=== PATIENT | male | born 1990 | race Caucasian/White ===

== ENCOUNTER 2018-02-20 14:56 | Emergency (ER) | payer SELFPAY ==
[~2018-02-20] VITALS: Ht 182.9 cm; Wt 72.6 kg
[~2018-02-20 14:56] MED LIST: ACHYD1T PO; CIPR-226 PO; CIPR500T78 PO; DICY20TA57 PO; HYDR-757 PO; IBUP800T26 PO; LVF500T PO; TMSL.4C PO
[2018-02-20 15:56] LABS: BASOPHILS % (AUTO) 0 % (0-10); EOSINOPHILS # (AUTO) 0.3 10^3/uL (0.0-0.3); EOSINOPHILS % (AUTO) 3 % (0-10); HEMATOCRIT 43 % (40-54); HEMOGLOBIN 15.3 G/DL (13.3-17.7); LYMPHOCYTES % (AUTO) 26 % (12-44); MEAN CORPUSCULAR HEMOGLOBIN 31 PG (25-34); MEAN CORPUSCULAR HGB CONC 35 G/DL (32-36); MEAN CORPUSCULAR VOLUME 88 FL (80-99); MEAN PLATELET VOLUME 10.1 FL (7.4-10.4); MONOCYTES # (AUTO) 0.8 X 10^3 (0.0-1.0); MONOCYTES % (AUTO) 7 % (0-12); NEUTROPHILS # (AUTO) 7.4 X 10^3 (1.8-7.8); NEUTROPHILS % (AUTO) 64 % (42-75); PLATELET COUNT 278 10^3/uL (130-400); RED BLOOD COUNT 4.92 10^6/uL (4.35-5.85); RED CELL DISTRIBUTION WIDTH 12.3 % (10.0-14.5); WHITE BLOOD COUNT 11.5 10^3/uL (4.3-11.0)
[2018-02-20] MEDS ORDERED: NS IV 1000 ML 1,000 ML IV SCH (16:00)
[2018-02-20] MEDS ORDERED: KETOROLAC 30 MG/ML VIAL IVP ONE (16:00)
[2018-02-20] MEDS ORDERED: fentaNYL INJECTION 100 MCG/2 ML AMP IVP ONE (16:00)
[2018-02-20 16:04] LABS: BILIRUBIN,URINE NEGATIVE (NEGATIVE); CLARITY,URINE CLEAR; COLOR,URINE YELLOW; GLUCOSE, URINE (UA) NEGATIVE (NEGATIVE); KETONES,URINE NEGATIVE (NEGATIVE); LEUKOCYTE ESTERASE ,URINE 1+ (NEGATIVE); NITRITE,URINE NEGATIVE (NEGATIVE); PH,URINE 6 (5-9); PROTEIN,URINE 1+ (NEGATIVE); UROBILINOGEN,URINE NORMAL (NORMAL)
[2018-02-20 16:08] LABS: ALANINE AMINOTRANSFERASE 22 U/L (0-55); ALBUMIN 4.6 GM/DL (3.2-4.5); ALKALINE PHOSPHATASE 66 U/L (40-136); AMYLASE 49 U/L (25-125); BILIRUBIN,TOTAL 0.5 MG/DL (0.1-1.0); BUN/CREATININE RATIO 16; CALCIUM 9.5 MG/DL (8.5-10.1); CARBON DIOXIDE 23 MMOL/L (21-32); CHLORIDE 104 MMOL/L (98-107); CREATININE SERUM 0.82 MG/DL (0.60-1.30); GFR ESTIMATED > 60; GLUCOSE 130 MG/DL (70-105); LIPASE 14 U/L (8-78); POTASSIUM 3.7 MMOL/L (3.6-5.0); SODIUM 138 MMOL/L (135-145); TOTAL PROTEIN 7.3 GM/DL (6.4-8.2)
[2018-02-20 16:13] LABS: BACTERIA,URINE FEW /HPF; RBC,URINE >100 /HPF; SQUAMOUS EPITHELIAL CELL,UR 0-2 /HPF
--- NOTE | 2018-02-20 16:23 | Diagnostic Imaging Report ---
INDICATION: Left-sided abdominal pain. COMPARISON: CT from earlier same day. FINDINGS: Single supine radiographic view of the abdomen was obtained. Bilateral nephrolithiasis is again identified. No other unexpected radiopaque foreign bodies or extraosseous calcifications are seen. Small bowel loops are nondistended. There is no large collection of free intraperitoneal air. Bony structures show no acute abnormalities. IMPRESSION: 1. Bilateral nephrolithiasis. 2. Nonobstructed small bowel gas pattern. Dictated by: Dictated on workstation # [id number]
--- NOTE | 2018-02-20 16:25 | Diagnostic Imaging Report ---
PROCEDURE: CT urinary tract, rule out kidney stone. TECHNIQUE: Multiple contiguous axial images were obtained through the abdomen and pelvis without the use of intravenous contrast. INDICATION: Left flank pain. The exam compared with contrast-enhanced study performed 02/03/2014. FINDINGS: There is no hydroureteronephrosis and the previous obstructing left ureteral stone no longer identified. A left pelvic extraureteral calcification believed phlebolith is seen on image 123. Urinary bladder is thickwalled but it is poorly distended and likely accounts for its dilatation. Some right prostatic lobe calcifications chronic. There are bilateral intrarenal stones, the largest on the left measuring 7.3 mm, the largest on the right measuring 3.3 mm. There is a right renal cyst better characterized at the 2014 contrast enhanced exam which showed no obvious change measuring about 1.9 cm. No perinephric or periureteric edema today. The liver, gallbladder, bile ducts, spleen, adrenals and pancreas were unremarkable. IMPRESSION: 1. Bilateral intrarenal stones without hydronephrosis or an opaque ureteral calculus. There is some thickening of the urinary bladder song but this is probably exaggerated owing to its lack of distention. No urinoma or periureteric inflammatory change. 2. Remaining abdominopelvic solid and hollow viscera unremarkable. Dictated by: Dictated on workstation # [id number]
[2018-02-20] MEDS ORDERED: ACHD5005 PO (17:07)
[2018-02-20] MEDS ORDERED: SULF1TAB35 PO (17:07)
--- NOTE | 2018-02-20 17:07 | ED Abdominal Pain ---
General Chief Complaint: Abdominal/GI Problems Stated Complaint: POSS KIDNEY STONES/PN LT SIDE Nursing Triage Note: PT AMB TO ROOM #8 W/O DIFFIUCLTY. A&OX4. CO LT SIDE ABD PAIN. PT REPORTS HE HAS HAD KIDNEY STONES IN THE PAST WHICH HE HAD TO HAVE SURGICALLY REMOVED AND REPORTS PAIN IS VERY SIMILAR TO PAIN EXPERIENCED PRIOR TO REMOVAL. DENIES N/V. ABD SOFT, ROUND, AND NON TENDER UPON PALPATION. BOWEL SOUNDS ACTIVE AND EQUAL IN ALL FOUR QUARDRANTS. Sepsis Screen: No Definite Risk Source of Information: Patient Exam Limitations: No Limitations History of Present Illness Date Seen by Provider: Feb 20, 2018 Time Seen by Provider: 17:20 Initial Comments Patient is a 28-year-old male who presents to the emergency room with complaints of left-sided abdominal/flank pain that started 2 days ago. He reports that he does have a history of kidney stones which had to be removed by Dr. Velarde. He states the pain was at its worst last night but has gradually improved throughout the day. Denies any nausea or vomiting. Timing/Duration: 2-3 Days Severity/Quality: Throbbing Location: LUQ, Flank (left) Associated Symptoms: No Fever/Chills, No Nausea/Vomiting Allergies and Home Medications Allergies Coded Allergies: NKANo Known Allergies (Unverified Allergy, Mild, 05/17/09) Home Medications Hydrocodone Bit/Acetaminophen 1 Tab Tab, 1 EACH PO Q4H PRN for PAIN Prescribed by: ANNIA COLVIN on 02/20/181706 Sulfamethoxazole/Trimethoprim 1 Each Tablet, 1 EACH PO BID Prescribed by: ANNIA COLVIN on 02/20/181706 Patient Home Medication List Home Medication List Reviewed: Yes Review of Systems Constitutional: see HPI; No chills, No fever Genitourinary: See HPI, Flank Pain (left flank pain) All Other Systems Reviewed Negative Unless Noted: Yes Past Tqrukrf-Umzlof-Hxmool Hx Past Med/Social Hx: Reviewed Nursing Past Med/Soc Hx Patient Social History Alcohol Use: Denies Use Recreational Drug Use: No (SMOKES 1 PPD) Smoking Status: Current Everyday Smoker Type Used: Cigarettes 2nd Hand Smoke Exposure: Yes Recent Foreign Travel: No Contact w/Someone Who Travel: No Recent Infectious Disease Expo: No Physical Abuse: No Sexual Abuse: No Past Medical History Surgeries: Yes (CYSTO WITH LEFT URETEROSCOPY; LITHOTRIPSY X 2; KIDNEY STONE REMOVAL) Respiratory: No Cardiac: No Neurological: No Reproductive Disorders: No Sexually Transmitted Disease: No HIV/AIDS: No Genitourinary: Yes Kidney Stones Gastrointestinal: No Musculoskeletal: No Endocrine: No HEENT: No Cancer: No Psychosocial: No Nursing Suicide Risk Score: 0 Integumentary: No Blood Disorders: No Adverse Reaction/Blood Tranf: No Family Medical History Reviewed Nursing Family Hx Physical Exam Vital Signs Vital Signs - First Documented 02/20/18 15:07 Temp 97.1 Pulse 69 Resp 16 B/P (MAP) 135/91 (106) Pulse Ox 99 O2 Delivery Room Air Capillary Refill : Less Than 3 Seconds Height/Weight/BMI Height: 6'0" Weight: 160lbs. oz. 72.664513be; 20.80 BMI Method:Stated General Appearance: WD/WN, no apparent distress Respiratory: chest non-tender, lungs clear, normal breath sounds, no respiratory distress, no accessory muscle use Cardiovascular: regular rate, rhythm, no edema, no gallop, no JVD, no murmur Gastrointestinal: normal bowel sounds, soft, no organomegaly, no pulsatile mass , tenderness (mild tenderness on left lower quadrant pain) Back: normal inspection, no CVA tenderness, no vertebral tenderness Neurologic/Psychiatric: alert, normal mood/affect, oriented x 3 Skin: normal color, warm/dry Progress/Results/Core Measures Results/Orders Lab Results Laboratory Tests Test 02/20/18 15:15 02/20/18 15:56 Range/Units White Blood Count 11.5 H 4.3-11.0 10^3/uL Red Blood Count 4.92 4.35-5.85 10^6/uL Hemoglobin 15.3 13.3-17.7 G/DL Hematocrit 43 40-54 % Mean Corpuscular Volume 88 80-99 FL Mean Corpuscular Hemoglobin 31 25-34 PG Mean Corpuscular Hemoglobin Concent 35 32-36 G/DL Red Cell Distribution Width 12.3 10.0-14.5 % Platelet Count 278 130-400 10^3/uL Mean Platelet Volume 10.1 7.4-10.4 FL Neutrophils (%) (Auto) 64 42-75 % Lymphocytes (%) (Auto) 26 12-44 % Monocytes (%) (Auto) 7 0-12 % Eosinophils (%) (Auto) 3 0-10 % Basophils (%) (Auto) 0 0-10 % Neutrophils # (Auto) 7.4 1.8-7.8 X 10^3 Lymphocytes # (Auto) 3.0 1.0-4.0 X 10^3 Monocytes # (Auto) 0.8 0.0-1.0 X 10^3 Eosinophils # (Auto) 0.3 0.0-0.3 10^3/uL Basophils # (Auto) 0.0 0.0-0.1 10^3/uL Sodium Level 138 135-145 MMOL/L Potassium Level 3.7 3.6-5.0 MMOL/L Chloride Level 104 98-107 MMOL/L Carbon Dioxide Level 23 21-32 MMOL/L Anion Gap 11 5-14 MMOL/L Blood Urea Nitrogen 13 7-18 MG/DL Creatinine 0.82 0.60-1.30 MG/DL Estimat Glomerular Filtration Rate > 60 BUN/Creatinine Ratio 16 Glucose Level 130 H 70-105 MG/DL Calcium Level 9.5 8.5-10.1 MG/DL Corrected Calcium 8.5-10.1 MG/DL Total Bilirubin 0.5 0.1-1.0 MG/DL Aspartate Amino Transf (AST/SGOT) 21 5-34 U/L Alanine Aminotransferase (ALT/SGPT) 22 0-55 U/L Alkaline Phosphatase 66 40-136 U/L Total Protein 7.3 6.4-8.2 GM/DL Albumin 4.6 H 3.2-4.5 GM/DL Amylase Level 49 25-125 U/L Lipase 14 8-78 U/L Urine Color YELLOW Urine Clarity CLEAR Urine pH 6 5-9 Urine Specific [place] 1.025 H 1.016-1.022 Urine Protein 1+ H NEGATIVE Urine Glucose (UA) NEGATIVE NEGATIVE Urine Ketones NEGATIVE NEGATIVE Urine Nitrite NEGATIVE NEGATIVE Urine Bilirubin NEGATIVE NEGATIVE Urine Urobilinogen NORMAL NORMAL MG/DL Urine Leukocyte Esterase 1+ H NEGATIVE Urine RBC (Auto) 5+ H NEGATIVE Urine RBC >100 H /HPF Urine WBC 5-10 H /HPF Urine Squamous Epithelial Cells 0-2 /HPF Urine Crystals NONE /LPF Urine Bacteria FEW H /HPF Urine Casts NONE /LPF Urine Mucus NEGATIVE /LPF Urine Culture Indicated YES Micro Results Microbiology 02/20/18 Urine Culture - Final, Complete NO GROWTH My Orders Orders - ANNIA COLVIN Urine Dip-Bedside (02/20/18 15:50) Ct Abd/Pelvis Wo(Kidney Stone) (02/20/18 15:50) Abdomen/Kub 1view (02/20/18 15:50) Saline Lock/Iv-Start (02/20/18 15:50) Fentanyl Injection (Sublimaze Injection (02/20/18 16:00) Ketorolac Injection (Toradol Injection) (02/20/18 16:00) Cbc With Automated Diff (02/20/18 15:50) Comprehensive Metabolic Panel (02/20/18 15:50) Amylase (02/20/18 15:50) Lipase (02/20/18 15:50) Ns Iv 1000 Ml (Sodium Chloride 0.9%) (02/20/18 16:00) Ua Culture If Indicated (02/20/18 15:57) Urine Culture (02/20/18 15:56) Medications Given in ED Vital Signs/I&O 02/20/18 02/20/18 15:07 17:21 Temp 97.1 97.1 Pulse 69 72 Resp 16 16 B/P (MAP) 135/91 (106) 126/78 (106) Pulse Ox 99 99 O2 Delivery Room Air Room Air Blood Pressure Mean: 106 Progress Progress Note : Progress Note I have seen and evaluated the patient. With the patients history of kidney stones, ct finding, laboratory finding, relief of pain I believe the patient has passed a kidney stone recently. I have informed him of plans for discharge, close follow up, and return precautions were given. Diagnostic Imaging Diagonstic Imaging: Xray, CT Plain Films/CT/US/NM/MRI: abdomen Comments NAME: ANNIA CHAN R MED REC#: [id number] PHYSICIAN: ANNIA COLVIN CC: ANTHALY COLVIN NICHOLAS M MD Page 1 of 1 RADIOLOGY REPORT VIA [facility]. [place], [place] CC: ANNIA COLVIN; STEPHANE MONTOYA MD Page 1 of 1 RADIOLOGY REPORT NAME: ANNIA CHAN R [facility] REC#: [id number] PT STATUS: DEP ER : 1990 PHYSICIAN: ANNIA COLVIN ADMIT DATE: 02/20/18/ER Signed Date of Exam: 02/20/18 ABDOMEN/KUB 1VIEW INDICATION: Left-sided abdominal pain. COMPARISON: CT from earlier same day. FINDINGS: Single supine radiographic view of the abdomen was obtained. Bilateral nephrolithiasis is again identified. No other unexpected radiopaque foreign bodies or extraosseous calcifications are seen. Small bowel loops are nondistended. There is no large collection of free intraperitoneal air. Bony structures show no acute abnormalities. IMPRESSION: 1. Bilateral nephrolithiasis. 2. Nonobstructed small bowel gas pattern. Dictated by: Dictated on workstation # [id number] Dict: 02/20/18 1615 Trans: 02/21/18 08 Interpreted by: STEPHANE MONTOYA MD Electronically signed by: STEPHANE MONTOYA MD 02/21/18808 NAME: ANNIA CHAN MED REC#: [id number] PHYSICIAN: ANNIA COLVIN CC: ANNIA COLVIN; SHUBHAM BEAN Page 2 of 2 RADIOLOGY REPORT VIA [place], [place] CC: NATHALY COLVIN THOMAS D Page 1 of 1 RADIOLOGY REPORT NAME: ANNIA CHAN R MED REC#: [id number] PT STATUS: REG ER : 1990 PHYSICIAN: ANNIA COLVIN ADMIT DATE: 02/20/18/ER Signed Date of Exam: 02/20/18 CT ABD/PELVIS WO(KIDNEY STONE) PROCEDURE: CT urinary tract, rule out kidney stone. TECHNIQUE: Multiple contiguous axial images were obtained through the abdomen and pelvis without the use of intravenous contrast. INDICATION: Left flank pain. The exam compared with contrast-enhanced study performed 02/03/2014. FINDINGS: There is no hydroureteronephrosis and the previous obstructing left ureteral stone no longer identified. A left pelvic extraureteral calcification believed phlebolith is seen on image 123. Urinary bladder is thickwalled but it is poorly distended and likely accounts for its dilatation. Some right prostatic lobe calcifications chronic. There are bilateral intrarenal stones, the largest on the left measuring 7.3 mm, the largest on the right measuring 3.3 mm. There is a right renal cyst better characterized at the 2014 contrast enhanced exam which showed no obvious change measuring about 1.9 cm. No perinephric or periureteric edema today. The liver, gallbladder, bile ducts, spleen, adrenals and pancreas were unremarkable. IMPRESSION: 1. Bilateral intrarenal stones without hydronephrosis or an opaque ureteral calculus. There is some thickening of the urinary bladder song but this is probably exaggerated owing to its lack of distention. No urinoma or periureteric inflammatory change. 2. Remaining abdominopelvic solid and hollow viscera unremarkable. Dictated by: Dictated on workstation # [id number] Dict: 02/20/18 1613 Trans: 02/20/18 1710 Interpreted by: SHUBHAM BEAN Electronically signed by: SHUBHAM BEAN 02/20/180 Reviewed: Reviewed by Me Departure Impression Primary Impression: Ureteral calculus, left Additional Impression: Urinary tract infection Disposition: 01 HOME, SELF-CARE Condition: Stable/Unchanged Departure-Patient Inst. Decision time for Depature: 17:06 Referrals: [facility] (PCP/Family) Primary Care Physician Patient Instructions: Kidney Stones (DC) Add. Discharge Instructions: Take medications as directed. Follow up with your doctor within 1 week for recheck. Return back to the emergency room for any worsening symptoms or concerns as needed. Drink plenty of clear liquids like water. All discharge instructions reviewed with patient and/or family. Voiced understanding. Scripts Hydrocodone Bit/Acetaminophen (Hydrocodone/Acetaminophen 5/325mg Tablet) 1 Tab Tab 1 EACH PO Q4H PRN for PAIN, #14 TAB Prov: ANNIA COLVIN 02/20/18 Sulfamethoxazole/Trimethoprim (Bactrim Ds Tablet) 1 Each Tablet 1 EACH PO BID for 7 Days, #14 TAB Prov: ANNIA COLVIN 02/20/18 ANNIA COLVIN Feb 20, 2018 17:07
[2018-02-20 17:21] VITALS: BP 126/78
== END 2018-02-20 17:21 | disposition home or self-care (01) ==
LOC: EDUNIT# 14:56 → ER 14:59
DX: N20.1 Calculus of ureter (principal); N39.0 Urinary tract infection, site not specified; F17.210 Nicotine dependence, cigarettes, uncomplicated; Z87.442 Personal history of urinary calculi
CPT/HCPCS: 36415; 74018; 74176; 80053; 81000; 82150; 83690; 85025; 87088; 96361; 96374; 96375

== ENCOUNTER 2018-04-10 09:29 | Emergency (ER) | payer SELFPAY ==
[~2018-04-10 09:29] MED LIST changes: +ACHD5005 PO; +SULF1TAB35 PO
== END 2018-04-10 10:17 | disposition left against medical advice (07) ==
LOC: EDUNIT# 09:29 → ER 09:30
DX: S61.219A Laceration without foreign body of unspecified finger without damage to nail, initial encounter (principal); W26.8XXA Contact with other sharp object(s), not elsewhere classified, initial encounter; Y92.008 Other place in unspecified non-institutional (private) residence as the place of occurrence of the external cause

== ENCOUNTER 2018-09-22 11:44 | Emergency (ER) | payer BC, OTHER ==
[~2018-09-22] VITALS: Ht 182.9 cm; Wt 77.1 kg
--- OUTSIDE RECORDS SUMMARY | 2018-09-22 11:51 | XMS REPORT ---
Author Author SHARONDA LOPEZ [facility] Address [address] [place] [address] Care Team Providers Care Medical Unit Secretary Name Role Phone SHARONDA LOPEZ Unavailable PROBLEMS Type Condition ICD9-CM Code PWG16-ML Code Onset Dates Condition Status SNOMED Code Problem Vomiting alone 787.03 Active 443341680 Problem Intestinal infection due to other organism, NEC 008.8 Active 85232051 Problem Abdominal pain, left upper quadrant 789.02 Active 461707767 Assessment Thoracic myofascial strain, initial encounter S29.019A May Active 12854658 Problem Hemoptysis, unspecified 786.30 Active 45892508 Problem Acute pharyngitis 462 Active 581870914 Problem Nausea with vomiting 787.01 Active 91128642 Problem Diarrhea 787.91 Active 86636308 Problem Cough 786.2 Active 27200295 Problem Hand(s) except finger(s) alone, insect bite, nonvenomous, without mention of infection 914.4 Active 50818884 ALLERGIES Substance Reaction Event Type Date Status N.K.D.A. Unknown Non Drug Allergy May, Unknown SOCIAL HISTORY No smoking Hx information available PLAN OF CARE VITAL SIGNS Height 70 in 2016-06-04 Weight 159.0 lbs 2016-06-04 Heart Rate 68 bpm 2016-06-04 Respiratory Rate 18 2016-06-04 BMI 22.81 kg/m2 2016-06-04 Blood pressure systolic 138 mmHg 2016-06-04 Blood pressure diastolic 78 mmHg 2016-06-04 MEDICATIONS No Known Medications RESULTS No Results PROCEDURES Procedure Date Ordered Related Diagnosis Body Site Office Visit, Est Pt., Level 2 Jun 04, 2016 IMMUNIZATIONS No Known Immunizations
--- OUTSIDE RECORDS SUMMARY | 2018-09-22 11:51 | XMS REPORT ---
Author Author GINA XENIA [facility] Address [address] [place] [address] Care Team Providers Care Network Control Operators Supervisor Name Role Phone XENIA FUENTES Unavailable PROBLEMS Unknown Problems ALLERGIES No Known Allergies ENCOUNTERS Encounter Location Date Diagnosis [facility] [id number] [place] [address] Dec, Spasm of thoracic back muscle M62.830 [facility] [id number] [place] [address] May, Thoracic myofascial strain, initial encounter S29.019A [facility] [id number] [place] [address] Jul, URI (upper respiratory infection) J06.9 [facility] [id number] [place] [address] Oct, [facility] [id number] [place] [address] Oct, [facility] [address] [address] Dec, [facility] [id number] [place] [address] Dec, [facility] [address] [place] [address] Dec, [facility] [id number] [place] [address] Dec, [facility] [address] [place] [address] Mar, [facility] [id number] [place] [address] Jan, [facility] [address] [facility] [id number] [address] Jan, [facility] [id number] [address] Dec, [facility] [id number] [address] Oct, [facility] [address] [place] [address] Oct, [facility] [address] [address] Oct, [facility] [id number] [address] Oct, IMMUNIZATIONS No Known Immunizations SOCIAL HISTORY Never Assessed REASON FOR VISIT Hurt back while moving furniture, pt. states moving and lifting furniture, turned and felt a pop, having pain ever since yesterday---[place] PLAN OF CARE Activity Details Follow Up prn Reason: VITAL SIGNS Height 70 in 2017-01-02 Weight 153.5 lbs 2017-01-02 Temperature 97.8 degrees Fahrenheit 2017-01-02 Heart Rate 74 bpm 2017-01-02 Respiratory Rate 18 2017-01-02 BMI 22.02 kg/m2 2017-01-02 Blood pressure systolic 152 mmHg 2017-01-02 Blood pressure diastolic 83 mmHg 2017-01-02 MEDICATIONS Medication Instructions Dosage Frequency Start Date End Date Duration Status Cyclobenzaprine HCl 10 mg Orally Three times a day 1 tablet as needed 8h Dec, Active RESULTS No Results PROCEDURES No Known procedures INSTRUCTIONS MEDICATIONS ADMINISTERED No Known Medications MEDICAL (GENERAL) HISTORY Type Description Date Surgical History kidney stones x 2
--- OUTSIDE RECORDS SUMMARY | 2018-09-22 11:51 | XMS REPORT ---
Author SHARONDA Huerta [facility] eClinical[employer] Address Unknown Phone Unavailable Care Team Providers Care Associate Veterinarian Name Role Phone SHARONDA LOPEZ CP Unavailable Allergies, Adverse Reactions, Alerts Substance Reaction Event Type N.K.D.A. Info Not Available Non Drug Allergy Problems Problem Type Condition Code Onset Dates Condition Status Assessment URI (upper respiratory infection) J06.9 Active Problem Abdominal pain, left upper quadrant 789.02 Active Problem Vomiting alone 787.03 Active Problem Acute pharyngitis 462 Active Problem Cough 786.2 Active Problem Hemoptysis, unspecified 786.30 Active Problem Diarrhea 787.91 Active Problem Intestinal infection due to other organism, NEC 008.8 Active Problem Hand(s) except finger(s) alone, insect bite, nonvenomous, without mention of infection 914.4 Active Problem Nausea with vomiting 787.01 Active Medications No Known Medications Procedures Procedure Coding System Code Date Office Visit, Est Pt., Level 2 CPT-4 36987 Jul 19, 2015 INFLUENZA ASSAY W/OPTIC CPT-4 62551 Jul 19, 2015 Vital Signs Date/Time: Jul 19, 2015 Temperature 99.1 F Weight 145.3 lbs Height 70 in BMI 20.85 Index Blood Pressure Diastolic 78 mmHg Blood Pressure Systolic 124 mmHg Cardiac Monitoring Heart Rate 72 bpm Results Name Result Date Reference Range Unit Abnormality Flag INFLUENZA A & B (IN HOUSE) ----Exp date [id number] ----INFLUENZA A negative [id number] ----INFLUENZA B negative [id number] ----Control + [id number] ----Lot # [id number] Summary Purpose eClinicalWorks Submission
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
[2018-09-22] MEDS ORDERED: KETOROLAC 60 MG/2 ML VIAL IM ONE (13:00)
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
[2018-09-22] MEDS ORDERED: CYCL10TA9 PO (14:23)
[2018-09-22] MEDS ORDERED: NAPR-1071 PO (14:23)
[2018-09-22 14:42] VITALS: BP 132/98
== END 2018-09-22 14:42 | disposition home or self-care (01) ==
LOC: EDUNIT# 11:44 → ER 11:48
DX: M54.5 Low back pain (principal); F17.210 Nicotine dependence, cigarettes, uncomplicated; Z87.442 Personal history of urinary calculi; V86.05XA Driver of 3- or 4- wheeled all-terrain vehicle (ATV) injured in traffic accident, initial encounter
CPT/HCPCS: 72128; 72131

== ENCOUNTER 2019-11-17 10:56 | Emergency (ER) | payer BC ==
[~2019-11-17] VITALS: Ht 183 cm; Wt 73.0 kg
[~2019-11-17 10:56] MED LIST changes: +CYCL10TA9 PO; +KETOROLAC 30 MG/ML VIAL ONE; +NAPR-1071 PO
[2019-11-17 11:09] LABS: BASOPHILS % (AUTO) 0 % (0-10); EOSINOPHILS # (AUTO) 0.3 10^3/uL (0.0-0.3); EOSINOPHILS % (AUTO) 1 % (0-10); HEMATOCRIT 45 % (40-54); HEMOGLOBIN 15.4 G/DL (13.3-17.7); LYMPHOCYTES # (AUTO) 2.5 X 10^3 (1.0-4.0); LYMPHOCYTES % (AUTO) 13 % (12-44); MEAN CORPUSCULAR HEMOGLOBIN 30 PG (25-34); MEAN CORPUSCULAR HGB CONC 34 G/DL (32-36); MEAN CORPUSCULAR VOLUME 89 FL (80-99); MEAN PLATELET VOLUME 9.7 FL (7.4-10.4); MONOCYTES # (AUTO) 1.8 X 10^3 (0.0-1.0); MONOCYTES % (AUTO) 9 % (0-12); NEUTROPHILS % (AUTO) 76 % (42-75); PLATELET COUNT 280 10^3/uL (130-400); RED CELL DISTRIBUTION WIDTH 12.4 % (10.0-14.5); WHITE BLOOD COUNT 19.6 10^3/uL (4.3-11.0)
--- NOTE | 2019-11-17 11:09 | ED Abdominal Pain ---
General Chief Complaint: Abdominal/GI Problems Stated Complaint: LOWER LEFT SIDE ABD PAIN Source of Information: Patient Exam Limitations: No Limitations History of Present Illness Date Seen by Provider: November 17, 2019 Time Seen by Provider: 11:00 Initial Comments To ER with sudden onset left lower abdominal pain that began a few hours before presentation suddenly. History of kidney stones and this feels similar. No fever no chills. He was nauseous but no vomiting. Timing/Duration: 4-6 Hours Severity/Quality: Severe Location: LLQ Radiation: No Radiation Activities at Onset: None Associated Symptoms: Denies Symptoms Allergies and Home Medications Allergies Coded Allergies: JOSSANo Known Allergies (Unverified Allergy, Mild, 05/17/09) Home Medications Cyclobenzaprine HCl 10 Mg Tablet, 10 MG PO Q8H PRN for SPASMS Prescribed by: JOANNE FARMER on 09/22/18 1423 Hydrocodone Bit/Acetaminophen 1 Tab Tab, 1 EACH PO Q4H PRN for PAIN Prescribed by: ANNIA COLVIN on 02/20/18 170 Naproxen 500 Mg Tablet, 500 MG PO BID Prescribed by: JOANNE FARMER on 09/22/18 1423 Sulfamethoxazole/Trimethoprim 1 Each Tablet, 1 EACH PO BID Prescribed by: ANNIA COLVIN on 02/20/181706 Patient Home Medication List Home Medication List Reviewed: Yes Review of Systems Review of Systems Constitutional: see HPI EENTM: No Symptoms Reported Respiratory: No Symptoms Reported Cardiovascular: No Symptoms Reported Gastrointestinal: See HPI, Abdominal Pain Genitourinary: No Symptoms Reported Musculoskeletal: no symptoms reported Skin: no symptoms reported Psychiatric/Neurological: No Symptoms Reported Endocrine: No Symptoms Reported Hematologic/Lymphatic: No Symptoms Reported Past Mropgjv-Jgddmc-Zbedqw Hx Patient Social History Type Used: Cigarettes 2nd Hand Smoke Exposure: Yes Recent Foreign Travel: No Contact w/Someone Who Travel: No Immunizations Up To Date Tetanus Booster (TDap): Less than 5yrs Past Medical History Surgeries: Yes (CYSTO WITH LEFT URETEROSCOPY; LITHOTRIPSY X 2; KIDNEY STONE REMOVAL) Respiratory: No Cardiac: No Neurological: No Reproductive Disorders: No Sexually Transmitted Disease: No HIV/AIDS: No Genitourinary: Yes Kidney Stones Gastrointestinal: No Musculoskeletal: No Endocrine: No HEENT: No Cancer: No Psychosocial: No Integumentary: No Blood Disorders: No Adverse Reaction/Blood Tranf: No Physical Exam Vital Signs Vital Signs - First Documented 11/17/19 11:02 Temp 37.7 Pulse 64 Resp 18 B/P (MAP) 138/99 (112) O2 Delivery Room Air Capillary Refill : Height/Weight/BMI Height: 6'0" Weight: 170lbs. oz. 77.162384vu; 20.80 BMI Method:Stated General Appearance: WD/WN, no apparent distress HEENT: PERRL/EOMI, normal ENT inspection Respiratory: no respiratory distress, no accessory muscle use Cardiovascular: regular rate, rhythm, no murmur Gastrointestinal: normal bowel sounds, soft, tenderness Extremities: normal range of motion, non-tender, normal inspection Neurologic/Psychiatric: alert, normal mood/affect, oriented x 3 Skin: normal color, warm/dry Progress/Results/Core Measures Results/Orders Lab Results Laboratory Tests Test 11/17/19 11:02 Range/Units White Blood Count 19.6 H 4.3-11.0 10^3/uL Red Blood Count 5.10 4.35-5.85 10^6/uL Hemoglobin 15.4 13.3-17.7 G/DL Hematocrit 45 40-54 % Mean Corpuscular Volume 89 80-99 FL Mean Corpuscular Hemoglobin 30 25-34 PG Mean Corpuscular Hemoglobin Concent 34 32-36 G/DL Red Cell Distribution Width 12.4 10.0-14.5 % Platelet Count 280 130-400 10^3/uL Mean Platelet Volume 9.7 7.4-10.4 FL Neutrophils (%) (Auto) 76 H 42-75 % Lymphocytes (%) (Auto) 13 12-44 % Monocytes (%) (Auto) 9 0-12 % Eosinophils (%) (Auto) 1 0-10 % Basophils (%) (Auto) 0 0-10 % Neutrophils # (Auto) 15.0 H 1.8-7.8 X 10^3 Lymphocytes # (Auto) 2.5 1.0-4.0 X 10^3 Monocytes # (Auto) 1.8 H 0.0-1.0 X 10^3 Eosinophils # (Auto) 0.3 0.0-0.3 10^3/uL Basophils # (Auto) 0.0 0.0-0.1 10^3/uL Sodium Level 140 135-145 MMOL/L Potassium Level 4.1 3.6-5.0 MMOL/L Chloride Level 107 98-107 MMOL/L Carbon Dioxide Level 22 21-32 MMOL/L Anion Gap 11 5-14 MMOL/L Glucose Level 97 70-105 MG/DL Calcium Level 9.7 8.5-10.1 MG/DL My Orders Orders - EDWIGE LO APRN Cbc With Automated Diff (11/17/19 10:58) Ua Culture If Indicated (11/17/19 10:58) Basic Metabolic Panel (11/17/19 10:58) Abdomen/Kub 1view (11/17/19 11:05) Ct Abd/Pelvis Wo(Kidney Stone) (11/17/19 11:05) Ed Iv/Invasive Line Start (11/17/19 11:05) Manual Differential (11/17/19 11:02) Ns Iv 1000 Ml (Sodium Chloride 0.9%) (11/17/19 11:15) Ceftriaxone For Iv Use (Rocephin For I (11/17/19 11:15) Medications Given in ED Current Medications Medications Dose Ordered Sig/Jinny Route Start Time Stop Time Status Last Admin Dose Admin Ketorolac Tromethamine 30 mg ONCE ONCE IVP 11/17/19 11:15 11/17/19 11:16 DC 11/17/19 11:04 30 MG Vital Signs/I&O 11/17/19 11:02 Temp 37.7 Pulse 64 Resp 18 B/P (MAP) 138/99 (112) O2 Delivery Room Air Departure Impression Primary Impression: Ureteral calculus, left Disposition: 01 HOME, SELF-CARE Condition: Stable Departure-Patient Inst. Decision time for Depature: 11:26 Referrals: [facility] [place] Primary Care Physician KALEN CIFUENTES MD Patient Instructions: Kidney Stones in Adults Add. Discharge Instructions: 1. Return to ER for any fevers or intolerable pain. Medication as directed. Follow-up with Dr. Cifuentes. Antibiotics as directed. All discharge instructions reviewed with patient and/or family. Voiced understanding. Scripts Sulfamethoxazole/Trimethoprim (Bactrim Ds Tablet) 1 Each Tablet 1 EACH PO BID, #14 TAB Prov: EDWIGE LO APRN 11/17/19 Ibuprofen (Ibuprofen) 800 Mg Tablet 800 MG PO Q8H PRN for PAIN, #30 TAB 0 Refills Prov: EDWIGE LO APRN 11/17/19 Copy Copies To 1: KALEN CIFUENTES MD, PETER J APRN November 17, 2019 11:09
[2019-11-17] MEDS ORDERED: KETOROLAC 30 MG/ML VIAL IVP ONE (11:15)
[2019-11-17] MEDS ORDERED: cefTRIAXone FOR IV USE 1,000 MG in WATER (STERILE) FOR INJECTION 10 ML IV ONE (11:15)
[2019-11-17] MEDS ORDERED: NS IV 1000 ML 1,000 ML IV SCH (11:15)
[2019-11-17 11:21] LABS: CHLORIDE 107 MMOL/L (98-107); POTASSIUM 4.1 MMOL/L (3.6-5.0); SODIUM 140 MMOL/L (135-145)
[2019-11-17 11:22] LABS: CALCIUM 9.7 MG/DL (8.5-10.1)
[2019-11-17 11:23] LABS: GLUCOSE 97 MG/DL (70-105)
[2019-11-17 11:24] LABS: CARBON DIOXIDE 22 MMOL/L (21-32)
[2019-11-17 11:27] LABS: BUN/CREATININE RATIO 15; CREATININE SERUM 0.94 MG/DL (0.60-1.30); GFR ESTIMATED > 60
[2019-11-17] MEDS ORDERED: HYDR-3870 PO (11:27)
[2019-11-17] MEDS ORDERED: SULF1TAB35 PO ×2 (11:27)
[2019-11-17] MEDS ORDERED: IBUP-1780 PO (11:27)
[2019-11-17 11:34] LABS: BAND NEUTROPHILS 3 %; BASOPHILS % (MANUAL) 0 %; EOSINOPHILS % (MANUAL) 1 %; LYMPHOCYTES % (MANUAL) 18 %; MONOCYTES % (MANUAL) 7 %; NEUTROPHILS % (MANUAL) 71 %; RBC MORPH NORMAL
--- NOTE | 2019-11-17 11:38 | Diagnostic Imaging Report ---
INDICATION: Left-sided abdominal pain, history of nephrolithiasis.. TECHNIQUE: Single supine view of the abdomen 11:35 AM CORRELATION STUDY: 02/20/2018 FINDINGS: There are multiple calcifications varying sizes of bilateral renal silhouettes. There is additional, approximately 11 mm calcification superimposed over the left mid sacrum consistent with the known mid to distal left ureteral stone. Additional calcification of the pelvis appear unchanged likely phleboliths. Spina bifida occulta defect at S1 level present. IMPRESSION: 1. Bilateral nephrolithiasis. Additional large stone projects over the left mid sacrum compatible with the known distal left ureteral stone. Dictated by: Dictated on workstation # [id number]
--- NOTE | 2019-11-17 11:43 | Progress Note-Pre Operative ---
Pre-Operative Progress Note H&P Reviewed The H&P was reviewed, patient examined and no changes noted. Date Seen by Provider: November 17, 2019 Time Seen by Provider: 11:43 Date H&P Reviewed: November 17, 2019 Time H&P Reviewed: 11:43 Pre-Operative Diagnosis: LT MID URETERAL STONE KALEN CIFUENTES MD November 17, 2019 11:43
--- NOTE | 2019-11-17 11:46 | Diagnostic Imaging Report ---
PROCEDURE: CT urinary tract, rule out kidney stone. TECHNIQUE: Multiple contiguous axial images were obtained through the abdomen and pelvis without the use of intravenous contrast. Auto Exposure Controls were utilized during the CT exam to meet ALARA standards for radiation dose reduction. INDICATION: Left-sided abdominal pain with history of stones. CORRELATION STUDY: 02/20/2018. FINDINGS: There is moderate left-sided hydroureteronephrosis owing to rather sizable, 7 x 5 x 11 mm, stone in the left sek-ar-jcbmkf ureter. This is located at approximately S1-S2 level. There is engorgement of the left kidney. Several additional left-sided nonobstructing stones are present. Right kidney also contains multiple nonobstructing renal stones to be present. No ureteric calcification or right-sided obstructive uropathy. 14 mm ill-defined low-density area in the interpolar region of the right kidney, generally stable. Remainder of the examination demonstrates unenhanced liver, spleen, gallbladder, pancreas, and adrenal glands without acute abnormality. Abdominal aorta is normal in contour. A few small central retroperitoneal lymph nodes are present. Gastrointestinal tract without obstruction or inflammation. No abdominal ascites or free air. Urinary bladder is unremarkable. Calcification along the right aspect of the prostate gland. Osseous structures demonstrate no acute findings. IMPRESSION: 1. Moderate left-sided obstructive uropathy owing to rather sizable, 11 mm, stone at the left aev-vi-wiorwx ureter. 2. Additional bilateral nonobstructing renal stones are also present. Dictated by: Dictated on workstation # [id number]
[2019-11-17] MEDS ORDERED: LORA10TA7 PO ×2 (12:50)
[2019-11-17 16:02] VITALS: BP 120/68
[2019-11-17 16:10] VITALS: BP 122/78
[2019-11-17] MEDS ORDERED: ONDANSETRON 4 MG/2 ML (SDV) Z0FRAN IVP PRN (16:15)
[2019-11-17] MEDS ORDERED: HYDROmorphone 2 MG/ML VIAL (DILAUDID) IV ONE (16:15)
[2019-11-17 16:20] VITALS: BP 132/74
[2019-11-17 16:30] VITALS: BP 138/94
[2019-11-17 16:40] VITALS: BP 132/85
[2019-11-17 16:50] VITALS: BP 134/84
--- NOTE | 2019-11-17 16:58 | Anesthesia-General Post-Op ---
General Patient Condition Mental Status/LOC: Same as Preop Cardiovascular: Satisfactory Nausea/Vomiting: Absent Respiratory: Satisfactory Pain: Controlled Complications: Absent Post Op Complications Complications None Follow Up Care/Instructions Patient Instructions None needed. Anesthesia/Patient Condition Patient Condition Patient is doing well, no complaints, stable vital signs, no apparent adverse anesthesia problems. No complications reported per nursing. D/C home per [facility] Criteria: Yes ELIU BRAXTON CRNA November 17, 2019 16:58
[2019-11-17] MEDS ORDERED: TMSL.4C PO ×2 (17:21)
== END 2019-11-17 12:10 | disposition home or self-care (01) ==
LOC: EDUNIT# 10:56 → ER 10:57
DX: N13.2 Hydronephrosis with renal and ureteral calculous obstruction (principal); Z77.22 Contact with and (suspected) exposure to environmental tobacco smoke (acute) (chronic)
CPT/HCPCS: 36415; 74018; 74176; 80048; 85007; 85027

== ENCOUNTER 2019-11-17 11:42 | Day surgery (SDC) | payer BC ==
[~2019-11-17] VITALS: Ht 182.9 cm; Wt 73.0 kg
[~2019-11-17 11:42] MED LIST changes: +HYDR-3870 PO; +IBUP-1780 PO; -KETOROLAC 30 MG/ML VIAL ONE
[2019-11-17 12:15] VITALS: BP 144/93
[2019-11-17] MEDS: LACTATED RINGERS 1,000 ML IV PRN ×2 (12:15→14:40)
[2019-11-17] MEDS ORDERED: LORA10TA7 PO ×2 (12:50)
[2019-11-17] MEDS ORDERED: SEVOFLURANE (ULTANE) 15 ML INHAL SOLN ONE (13:51)
[2019-11-17] MEDS ORDERED: fentaNYL INJECTION 100 MCG/2 ML AMP ONE (13:51)
[2019-11-17] MEDS ORDERED: DEXAMETHASONE 10 MG/ML (DECADRON) 1 ML VIAL ONE (13:51)
[2019-11-17] MEDS ORDERED: MIDAZOLAM 2 MG/2 ML (VERSED) VIAL ONE (13:51)
[2019-11-17] MEDS ORDERED: LIDOCAINE PF 2% 5 ML (XYLOCAINE) VIAL ONE (13:51)
[2019-11-17] MEDS ORDERED: ONDANSETRON 4 MG/2 ML (SDV) Z0FRAN ONE (13:51)
[2019-11-17] MEDS ORDERED: proPOfol 200 MG/20 ML (DIPRIVAN) VIAL IV ONE (13:51)
--- NOTE | 2019-11-17 15:41 | Progress Note-Pre Operative ---
Pre-Operative Progress Note H&P Reviewed The H&P was reviewed, patient examined and no changes noted. Date Seen by Provider: November 17, 2019 Time Seen by Provider: 11:00 Date H&P Reviewed: November 17, 2019 Time H&P Reviewed: 11:00 Pre-Operative Diagnosis: LT MID URETERAL STONE KALEN CIFUENTES MD November 17, 2019 15:41
--- NOTE | 2019-11-17 15:43 | Discharge Inst-Urology ---
Discharge Inst-Urology Reconcile Patient Problems Problems Reviewed?: Yes Final Diagnosis LT MID URETERAL STONE Patient Instructions/Follow Up Plan/Assessment/Instructions Please make appointment to been seen in office Wednesday 11/29, KUB prior to it KUB on way home. Post ESWL instructions Increase oral fluids for 48 hours and then as needed. Diet and Activity as tolerated. If questions or concerns contact your physician Or seek help at emergency department. KALEN CIFUENTES MD November 17, 2019 15:43
--- NOTE | 2019-11-17 15:44 | Progress Note-Post Operative ---
Post-Operative Progess Note Surgeon (s)/Court Registry Officer (s) Surgeon KALEN CIFUENTES MD Court Registry Officer: NONE Pre-Operative Diagnosis LT MID URETERAL STONE Post-Operative Diagnosis SAME Procedure & Operative Findings Date of Procedure 11/17/19 Procedure Performed/Findings LT ESWL Anesthesia Type GENERAL Estimated Blood Loss Estimated blood loss (mL): NONE Specimens/Packing Specimens Removed NONE Packing: NONE KALEN CIFUENTES MD November 17, 2019 15:44
[2019-11-17] MEDS ORDERED: FUROSEMIDE 40 MG/4 ML INJ (LASIX) ONE (15:49)
[2019-11-17] MEDS ORDERED: KETOROLAC 30 MG/ML VIAL ONE (15:49)
[2019-11-17 16:50] VITALS: BP 143/94
[2019-11-17 17:20] VITALS: BP 148/105
[2019-11-17] MEDS ORDERED: TMSL.4C PO ×2 (17:21)
--- NOTE | 2019-11-17 17:34 | Diagnostic Imaging Report ---
INDICATION: Post ESWL. EXAMINATION: Abdomen dated 11/17/2019. COMPARISON: Comparison made to 11/17/2019 at 11:35 a.m. FINDINGS: A single frontal view of the abdomen is performed. The previously described hyperdensities within the kidneys are not seen on this examination, either due to the interval procedure or obscured by the diffuse air and stool in the expected location of the kidneys which are not well seen. The stone in the left distal ureter on prior imaging is also not appreciated on this examination. Tiny calcifications in the pelvis are stable. IMPRESSION: 1. Previously described nephrolithiasis and left ureteral stone are not seen on this examination, either no longer present or obscured by the diffuse stool and air. Dictated by: Dictated on workstation # [id number]
[2019-11-17 17:45] VITALS: BP 178/101
[2019-11-17 17:55] VITALS: BP 178/101
--- NOTE | 2019-11-17 19:38 | OPERATIVE REPORT ---
DATE OF SERVICE: 11/17/2019 PREOPERATIVE DIAGNOSIS: Left mid ureteral stone. POSTOPERATIVE DIAGNOSIS: Left mid ureteral stone. OPERATION PERFORMED: Left ESWL. SURGEON: Kahlil Cifuentes MD ANESTHESIA: General. COMPLICATIONS: None. DESCRIPTION OF PROCEDURE: Under satisfactory general anesthesia, the patient in supine position on the ESWL table. The left mid ureteral stone was localized. Shocks were delivered at kV of 8, a total of 2000 shocks completely fragmented the stone that was not visualized anymore. The patient received 40 mg of Lasix and 30 mg of Toradol IV at the end of the procedure. He tolerated the procedure and anesthesia well and was sent to recovery room in stable condition. Job ID: [id number] DocumentID: [id number] Dictated Date: 11/17/2019 15:52:21 Pharmacy Sales Representative Date: 11/17/2019 19:38:01 Dictated By: KAHLIL CIFUENTES MD
--- OUTSIDE RECORDS SUMMARY | 2019-11-18 11:18 | XMS REPORT ---
Author Author Benji Dominguez Doctor Organization [facility] Address Unknown Phone Unavailable Care Team Providers Care [employer] Teacher Name Role Phone Migration, Doctor Unavailable Unavailable PROBLEMS Unknown Problems ALLERGIES No Information ENCOUNTERS Encounter Location Date Diagnosis [facility] [address] [id number] [address] [place] [phone] Dec, Spasm of thoracic back muscl e M62.830 [facility] [address] [id number] [address] [place] [phone] May, Thoracic myofascial strain, initial encounter S29.019A [facility] [address] [id number] [address] [place] [phone] Jul, URI (upper respiratory infec tion) J06.9 [facility] [address] [id number] [address] [place] [phone] Oct, [facility] [address] [id number] [address] [place] [phone] Oct, [facility] [address] [id number] [address] [place] [phone] Dec, [facility] [address] [id number] [address] [place] [phone] Dec, [facility] [address] [id number] [address] [place] [phone] Dec, [facility] [address] [id number] [address] [place] [phone] Dec, [facility] [address] [id number] [address] [place] [phone] Mar, [facility] [address] [id number] [address] [place] [phone] Jan, [facility] [address] [id number] [address] [place] [phone] Jan, [facility] [address] [id number] [address] [place] [phone] Dec, [facility] [address] [id number] [address] [place] [phone] Oct, [facility] [address] [facility] [id number] [address] [place] [phone] Oct, [facility] [address] [id number] [address] [place] [phone] Oct, [facility] [address] [facility] [id number] [address] [place] [phone] Oct, IMMUNIZATIONS No Known Immunizations SOCIAL HISTORY Never Assessed REASON FOR VISIT [place] [place] CARE VITAL SIGNS MEDICATIONS Medication Instructions Dosage Frequency Start Date End Date Duration S tatus Bactrim DS 800-160 mg 1 tablet by Oral route 2 times p er day for 10 day(s) Jan, Active Bentyl 20 mg 1 tablet by Oral route every 6 h ours PRN abdominal pain/cramping Dec, Active Azithromycin 250 mg 2 Tablet by Oral rou te on day 1 then take 1 daily for 6 days Mar, Active Zofran ODT 8 mg 1 tablet by Oral route every 8 hours P RN nausea or vomiting Dec, Active RESULTS No Results PROCEDURES No Known procedures INSTRUCTIONS MEDICATIONS ADMINISTERED No Known Medications MEDICAL (GENERAL) HISTORY Type Description Date Surgical History kidney stones x 2
--- OUTSIDE RECORDS SUMMARY | 2019-11-18 11:18 | XMS REPORT ---
Author Author Benji Dominguez Doctor Organization [facility] Address Unknown Phone Unavailable Care Team Providers Care Nutrition Coordinator Name Role Phone Migration, Doctor Unavailable Unavailable PROBLEMS Unknown Problems ALLERGIES No Information ENCOUNTERS Encounter Location Date Diagnosis [facility] [address] [id number] [address] [place] [phone] Dec, Spasm of thoracic back muscl e M62.830 [facility] [address] [id number] [address] [place] [phone] May, Thoracic myofascial strain, initial encounter S29.019A [facility] [address] [id number] [address] [place] [phone] Jul, URI (upper respiratory infec tion) J06.9 [facility] [address] [id number] [address] [place] [phone] Oct, [facility] [address] [id number] [address] [place] [phone] Oct, [facility] [address] [id number] [address] [place] [phone] Dec, [facility] [address] [id number] [address] [place] [phone] Dec, [facility] [address] [id number] [address] [place] [phone] Dec, [facility] [address] [id number] [address] [place] [phone] Dec, [facility] [address] [id number] [address] [place] [phone] Mar, [facility] [address] [id number] [address] [place] [phone] Jan, [facility] [address] [facility] [id number] [address] [place] [phone] Jan, [facility] [address] [facility] [id number] [address] [place] [phone] Dec, [facility] [address] [facility] [id number] [address] [place] [phone] Oct, [facility] [address] [facility] [id number] [address] [place] [phone] Oct, [facility] [address] [facility] [id number] [address] [place] [phone] Oct, [facility] [address] [facility] [id number] [address] [place] [phone] Oct, IMMUNIZATIONS No Known Immunizations SOCIAL HISTORY Never Assessed [place] FOR [place]IT [place] [place] VITAL SIGNS MEDICATIONS No Known Medications RESULTS No Results PROCEDURES No Known procedures INSTRUCTIONS MEDICATIONS ADMINISTERED No Known Medications MEDICAL (GENERAL) HISTORY Type Description Date Surgical History kidney stones x 2
--- OUTSIDE RECORDS SUMMARY | 2019-11-18 11:18 | XMS REPORT ---
Author Author Benji Dominguez Doctor Organization [facility] Address Unknown Phone Unavailable Care Team Providers Care Cigarette Package Examiner Name Role Phone Migration, Doctor Unavailable Unavailable PROBLEMS Unknown Problems ALLERGIES No Information ENCOUNTERS Encounter Location Date Diagnosis [facility] [address] [id number] [address] [place] [phone] Dec, Spasm of thoracic back muscl e M62.830 [facility] [address] [id number] [address] [place] [phone] May, Thoracic myofascial strain, initial encounter S29.019A [facility] [address] [id number] [address] [place] [phone] Jul, URI (upper respiratory infec tion) J06.9 [facility] [address] [id number] [address] [place] [phone] Oct, [facility] [address] [id number] [address] [place] [phone] Oct, [facility] [address] [id number] [address] [place] [phone] Dec, [facility] [address] [id number] [address] [place] [phone] Dec, [facility] [address] [id number] [address] [place] [phone] Dec, [facility] [address] [id number] [address] [place] [phone] Dec, [facility] [address] [id number] [address] [place] [phone] Mar, [facility] [address] [id number] [address] [place] [phone] Jan, [facility] [address] [facility] [id number] [address] [place] [phone] Jan, [facility] [address] [facility] [id number] [address] [place] [phone] Dec, [facility] [address] [facility] [id number] [address] [place] [phone] Oct, [facility] [address] [facility] [id number] [address] [place] [phone] Oct, [facility] [address] [facility] [id number] [address] [place] [phone] Oct, [facility] [address] [facility]] [id number] [address] [place] [phone] Oct, IMMUNIZATIONS No Known Immunizations SOCIAL HISTORY Never Assessed REASON FOR VISIT [place] [place] OF CARE VITAL SIGNS MEDICATIONS No Known Medications RESULTS No Results PROCEDURES No Known procedures INSTRUCTIONS MEDICATIONS ADMINISTERED No Known Medications MEDICAL (GENERAL) HISTORY Type Description Date Surgical History kidney stones x 2
--- OUTSIDE RECORDS SUMMARY | 2019-11-18 11:18 | XMS REPORT ---
Author Author Benji VINES Organization [facility] Address [address] [place] [address] Care Team Providers Care Ice Grinder Name Role Phone MOHINDER JOCE Unavailable PROBLEMS Unknown Problems ALLERGIES No Information ENCOUNTERS Encounter Location Date Diagnosis [facility] [address] [id number] [address] [place] [phone] Dec, Spasm of thoracic back muscl e M62.830 [facility] [address] [facility] [id number] [address] [place] [phone] May, Thoracic myofascial strain, initial encounter S29.019A [facility] [address] [facility] [id number] [address] [place] [phone] Jul, URI (upper respiratory infec tion) J06.9 [facility] [address] [facility] [id number] [address] [place] [phone] Oct, [facility] [address] [facility] [id number] [address] [place] [phone] Oct, [facility] [address] [facility] [id number] [address] [place] [phone] Dec, [facility] [address] [id number] [address] [place] [phone] Dec, [facility] [address] [id number] [address] [place] [phone] Dec, [facility] [address] [facility] [id number] [address] [place] [phone] Dec, [facility] [address] [facility] [id number] [address] [place] [phone] Mar, [facility] [address] [id number] [address] [place] [phone] Jan, [facility] [address] [id number] [address] [place] [phone] Jan, [facility] [address] [id number] [address] [place] [phone] Dec, [facility] [address] [facility] [id number] [address] [place] [phone] Oct, [facility] [address] [facility] [id number] [address] [place] [phone] Oct, [facility] [address] [facility] [id number] [address] [place] [phone] Oct, [facility] [address] [facility] [id number] [address] [place] [phone] Oct, IMMUNIZATIONS No Known Immunizations SOCIAL HISTORY Never Assessed REASON FOR VISIT PLAN OF CARE VITAL SIGNS Height 70 in 2014-01-01 Weight 141.2 lbs 2014-01-01 Temperature 98.1 degrees Fahrenheit 2014-01-01 Heart Rate 80 bpm 2014-01-01 Respiratory Rate 18 2014-01-01 Blood pressure systolic 116 mmHg 2014-01-01 Blood pressure diastolic 64 mmHg 2014-01-01 MEDICATIONS No Known Medications RESULTS No Results PROCEDURES No Known procedures INSTRUCTIONS MEDICATIONS ADMINISTERED No Known Medications MEDICAL (GENERAL) HISTORY Type Description Date Surgical History kidney stones x 2
--- OUTSIDE RECORDS SUMMARY | 2019-11-18 11:18 | XMS REPORT ---
Author Author GINA Benji MICHAELS Organization [facility] Address [address] [place] [address] Care Team Providers Care Turn Down Man Name Role Phone XENIA FUENTES Unavailable PROBLEMS Unknown Problems ALLERGIES No Information ENCOUNTERS Encounter Location Date Diagnosis [facility] [address] [phone] Dec, Spasm of thoracic back muscle M62.830 [facility] [address] [phone] May, Thoracic myofascial strain, initial enco unter S29.019A [facility] [address] [phone] Jul, URI (upper respiratory infection) J06.9 [facility] [address] [phone] Oct, [facility] [address] [phone] Oct, [facility] [address] [phone] Dec, [facility] [address] [phone] Dec, [facility] [address] [phone] Dec, [facility] [address] [phone] Dec, [facility] [address] [phone] Mar, [facility] [address] [phone] Jan, [facility] [address] [id number] [place] [address] Jan, [facility] [address] [id number] [place] [address] Dec, [facility] [address] [id number] [place] [address] Oct, [facility] [address] [id number] [place] [address] Oct, [facility] [address] [id number] [place] [address] Oct, [facility] [address] [id number] [place] [address] Oct, IMMUNIZATIONS No Known Immunizations SOCIAL HISTORY Never Assessed REASON FOR VISIT PLAN OF CARE VITAL SIGNS Height 70 in 2014-01-07 Weight 144.9 lbs 2014-01-07 Temperature 96.6 degrees Fahrenheit 2014-01-07 Heart Rate 56 bpm 2014-01-07 Respiratory Rate 20 2014-01-07 Blood pressure systolic 132 mmHg 2014-01-07 Blood pressure diastolic 80 mmHg 2014-01-07 MEDICATIONS No Known Medications RESULTS No Results PROCEDURES No Known procedures INSTRUCTIONS MEDICATIONS ADMINISTERED No Known Medications MEDICAL (GENERAL) HISTORY Type Description Date Surgical History kidney stones x 2
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
== END 2019-11-17 17:55 | disposition home or self-care (01) ==
LOC: SDC 11:42 → EDSTATUS 11-18 10:36
PROVIDERS: ATTEND Urology
DX: Z48.816 Encounter for surgical aftercare following surgery on the genitourinary system (principal); Z87.442 Personal history of urinary calculi
CPT/HCPCS: 74018; 87081

== ENCOUNTER → 2019-11-30 | Outpatient (CLI) | payer BC ==
[~2019-11-30] MED LIST changes: +LORA10TA7 PO
--- NOTE | 2019-11-30 14:58 | Diagnostic Imaging Report ---
INDICATION: Status post ESWL. COMPARISON: 11/17/2019. FINDINGS: Single supine radiographic view of the abdomen was obtained. Multiple punctate extraosseous calcifications are seen projecting over both kidneys. Note is made of large calculus within the distal left ureter on recent CT dated 11/17/2019. No convincing calcification is seen on today's exam to correspond. No unexpected radiopaque foreign bodies are identified. Small bowel loops are nondistended. Osseous structures show no gross acute abnormalities. IMPRESSION: 1. Multiple bilateral renal calculi. 2. No other extraosseous calcifications seen to correspond to distal ureteral calculus identified on previous CT. Dictated by: Dictated on workstation # [id number]
== END ==
LOC: RAD 14:19
PROVIDERS: ATTEND Urology
DX: N20.0 Calculus of kidney (principal); Z98.890 Other specified postprocedural states
CPT/HCPCS: 74018

== ENCOUNTER → 2019-11-30 | Outpatient (CLI) | payer BC ==
[2019-11-30 17:05] LABS: CHLORIDE 106 MMOL/L (98-107); POTASSIUM 3.8 MMOL/L (3.6-5.0); SODIUM 141 MMOL/L (135-145)
[2019-11-30 17:06] LABS: CALCIUM 9.3 MG/DL (8.5-10.1)
[2019-11-30 17:07] LABS: GLUCOSE 80 MG/DL (70-105)
[2019-11-30 17:08] LABS: CARBON DIOXIDE 26 MMOL/L (21-32)
[2019-11-30 17:11] LABS: CREATININE SERUM 0.76 MG/DL (0.60-1.30); GFR ESTIMATED > 60; PHOSPHORUS 2.7 MG/DL (2.3-4.7)
[2019-11-30 17:12] LABS: BUN/CREATININE RATIO 11
[2019-11-30 17:13] LABS: URIC ACID 3.4 MG/DL (2.6-7.2)
== END ==
LOC: LAB 16:14
PROVIDERS: ATTEND Urology
DX: N20.9 Urinary calculus, unspecified (principal)
CPT/HCPCS: 36415; 80048; 83970; 84100; 84550

== ENCOUNTER → 2020-12-06 | Outpatient (CLI) | payer BC ==
--- NOTE | 2020-12-06 09:28 | Diagnostic Imaging Report ---
PROCEDURE: MRI lumbar spine. TECHNIQUE: Multiplanar, multisequence MRI of the lumbar spine was performed without contrast. INDICATION: Low back pain. No prior studies are available for comparison. FINDINGS: Curvature and alignment of the lumbar spine is normal. Vertebral body heights are maintained. The marrow signal intensity is unremarkable. No compression fracture or geographic marrow lesion is seen. There is fairly normal height and signal intensity to the lumbar intervertebral discs. The conus appears unremarkable at the L1-L2 level. T12-L1: No focal disc protrusion, central canal or neural foraminal stenosis is identified. L1-L2: No central canal or neural foraminal stenosis is identified. L2-L3: No central canal or neural foraminal stenosis is identified. L3-L4: No central canal or neural foraminal stenosis is identified. L4-L5: There is very minimal annular bulging with a very slight midline disc bulge. However, no resultant central canal stenosis is seen. There appears to be very mild neural foraminal narrowing bilaterally, greater on the left. L5-S1: Central canal and neural foramina are widely patent. Paraspinous tissues are unremarkable. IMPRESSION: Unremarkable MRI of the lumbar spine apart from very mild disc bulging at L4-L5 with very mild neural foraminal narrowing. No central canal stenosis is detected. Dictated by: Dictated on workstation # [id number]
== END ==
LOC: RAD 08:00
PROVIDERS: ATTEND Family Medicine
DX: M51.26 Other intervertebral disc displacement, lumbar region (principal); M48.061 Spinal stenosis, lumbar region without neurogenic claudication
CPT/HCPCS: 72148

== ENCOUNTER 2022-10-03 10:13 | Outpatient (CLI) | payer BC ==
[~2022-10-03] VITALS: Ht 182.8 cm; Wt 72.6 kg
[~2022-10-03 10:13] MED LIST changes: +CYCL10TA25 PO; -CYCL10TA9 PO; -SULF1TAB35 PO; +SULF1TAB38 PO
[2022-10-04] MEDS ORDERED: HYDR-3817 PO (10:18)
== END 2022-10-03 10:42 | disposition home or self-care (01) ==
LOC: PREOP 10:13
PROVIDERS: ATTEND Surgery
DX: Z01.818 Encounter for other preprocedural examination (principal)

== ENCOUNTER 2022-10-04 09:52 | Day surgery (SDC) | payer BC ==
[2022-10-04] VITALS (11 sets, daily range): BP systolic 120–148; BP diastolic 58–89
--- NOTE | 2022-10-04 10:16 | Progress Note-Pre Operative ---
Pre-Operative Progress Note Date H&P Reviewed: Oct 04, 2022 Time H&P Reviewed: 10:15 History & Physical: H&P Reviewed, Patient Examed, No changes noted Pre-Operative Diagnosis: Right inguinal hernia MICHELLE CHUNG APRN Oct 04, 2022 10:16
[2022-10-04] MEDS ORDERED: HYDR-3817 PO (10:18)
--- NOTE | 2022-10-04 10:19 | Discharge Inst-Surgical ---
D/C Lap Instructions-KIDO Reconcile Patient Problems Problems Reviewed?: Yes New, Converted, or Re-Newed RX: RX on Chart Follow Up Appt in 2 weeks Activity as tolerated No driving for 24 hours No driving while on pain medications Incentive Spirometry use every 2 hours while awake Regular Diet Symptoms to Report: Fever over 101 degree F, Nausea/Vomiting Infection Signs and Symptoms to report: Increased redness, Foul odor of wound, Increased drainage Bathing instructions: May shower Operative Area Clean/Dry; Keep incision clean/dry If any problems/questions: Contact your physician or go to Emergency Room MICHELLE CHUNG APRN Oct 04, 2022 10:19
[2022-10-04] MEDS ORDERED: MIDAZOLAM 2 MG/2 ML (VERSED) VIAL ONE (10:22)
[2022-10-04] MEDS ORDERED: fentaNYL INJ 100 MCG/2 ML AMP ONE ×2 (10:22→12:46)
[2022-10-04] MEDS ORDERED: ONDANSETRON 4 MG/2 ML (SDV) Z0FRAN IVP PRN ×2 (10:30→13:15)
[2022-10-04] MEDS ORDERED: HYDROcodone/APAP 5 MG/325 MG (LORTAB) TAB PO ONE (10:30)
[2022-10-04] MEDS ORDERED: ACETAMINOPHEN 325 MG TABLET PO PRN (10:30)
[2022-10-04] MEDS ORDERED: ceFAZolin INJECTION 2,000 MG in NS (IVPB) 50 ML IV ONE (10:30)
[2022-10-04] MEDS ORDERED: morphine INJ 10 MG/ML 1ML (SYR OR VIAL) IVP PRN (10:30)
[2022-10-04] MEDS ORDERED: LACTATED RINGERS 1,000 ML IV PRN (10:30)
[2022-10-04] MEDS ORDERED: BUP/EPI 0.5% 1:200,000 (SENSORCAINE) 30 ML VIAL ONE (10:30)
[2022-10-04] MEDS ORDERED: BUP/EPI 0.5% 1:200,000 (SENSORCAINE) 30 ML VIAL INJ ONE (11:42)
[2022-10-04] MEDS ORDERED: proPOfol 200 MG/20 ML (DIPRIVAN) VIAL IV ONE (12:24)
[2022-10-04] MEDS ORDERED: LIDOCAINE PF 2% 5 ML (XYLOCAINE) VIAL ONE (12:24)
[2022-10-04] MEDS ORDERED: ONDANSETRON 4 MG/2 ML (SDV) Z0FRAN ONE (12:25)
[2022-10-04] MEDS ORDERED: ROCURONIUM 50 MG/5 ML (ZEMURON) VIAL IV ONE (12:25)
[2022-10-04] MEDS ORDERED: SEVOFLURANE (ULTANE) 15 ML INHAL SOLN ONE (12:26)
--- NOTE | 2022-10-04 12:28 | Progress Note-Post Operative ---
Post-Operative Progess Note Surgeon (s)/Figure Skater (s) Surgeon ALESSANDRO GOSS MD Figure Skater: sandeep levi PLAQUE MAKER Pre-Operative Diagnosis Right inguinal hernia Post-Operative Diagnosis right indirect inguinal hernia Procedure & Operative Findings Date of Procedure 10/04/22 Procedure Performed/Findings right ing hernia repair with mesh. Anesthesia Type get Estimated Blood Loss Estimated blood loss (mL): minimal Specimens/Packing Specimens Removed none ALESSANDRO GOSS MD Oct 04, 2022 12:28
[2022-10-04] MEDS ORDERED: KETOROLAC 30 MG/ML VIAL ONE (12:40)
[2022-10-04] MEDS ORDERED: morphine INJ 10 MG/ML 1ML (SYR OR VIAL) ONE (12:53)
[2022-10-04] MEDS ORDERED: morphine INJ 10 MG/ML 1ML (SYR OR VIAL) IVP ONE (13:15)
[2022-10-04] MEDS ORDERED: fentaNYL INJ 100 MCG/2 ML AMP IVP ONE (13:15)
[2022-10-04] MEDS ORDERED: PROMETHAZINE INJ 25 MG/ML (PHENERGAN) AMP IVP ONE (13:15)
--- NOTE | 2022-10-04 13:15 | Anesthesia-General Post-Op ---
General Patient Condition Mental Status/LOC: Same as Preop Cardiovascular: Satisfactory Nausea/Vomiting: Absent Respiratory: Satisfactory Pain: Controlled Complications: Absent Post Op Complications Complications None Follow Up Care/Instructions Patient Instructions None needed. Anesthesia/Patient Condition Patient Condition Patient is doing well, no complaints, stable vital signs, no apparent adverse anesthesia problems. No complications reported per nursing. LOUIS MARIE CRNA Oct 04, 2022 13:15
--- NOTE | 2022-10-04 18:14 | OPERATIVE REPORT ---
DATE OF SERVICE: 10/04/2022 ATTENDING PRIMARY CARE PHYSICIAN: Dr. Ankit Lozano. PREOPERATIVE DIAGNOSIS: Symptomatic reducible right inguinal hernia. POSTOPERATIVE DIAGNOSIS: Symptomatic reducible right indirect inguinal hernia. PROCEDURE: Laparoscopic right inguinal hernia repair with mesh. SURGEON: Alessandro Goss MD WELDER: Sky Holcomb APRN ANESTHESIA: General endotracheal. ESTIMATED BLOOD LOSS: Minimal. FINDINGS: Symptomatic reducible right indirect inguinal hernia. DISPOSITION: The patient tolerated the procedure well. INDICATIONS: The patient is a 32-year-old male who was referred over to us for pain and swelling in the right inguinal region. This was first noticed a few years ago; however, was not too painful. Over the years, the lesion has grown larger in size and become more painful. Upon examination, he was found to have right reducible inguinal hernia, which was tender to palpation. The natural history of hernias were explained to the patient. The patient opted for repair. DESCRIPTION OF PROCEDURE: The patient was brought to the operating room, laid supine on the table. After adequate IV pain and sedative medications and general endotracheal intubation, the abdomen was prepped and draped in standard surgical fashion. A 0.5% Marcaine with epinephrine was then used to anesthetize the supraumbilical rim and a crescent-shaped skin incision made using a #15 blade. The subcutaneous tissue was then dissected using a hemostat. A sharp towel clamp was used to retract the abdominal wall anteriorly and a Veress needle inserted with a low opening pressure of 0 mmHg. The abdomen was then insufflated to 15 mmHg pressure. The Veress needle removed and a 5 mm XL trocar placed followed by a 5 mm 45-degree angle laparoscope visualizing the peritoneal cavity. A 4-quadrant abdominal exploration was performed. A right indirect inguinal hernia was identified with nothing within the hernia sac. There was no left inguinal hernia component. The small bowel and colon appeared normal. Under direct visualization, we then proceeded to place bilateral 5 mm ports under direct visualization after the skin and peritoneal lining were anesthetized using 0.5% Marcaine with epinephrine and transverse skin incision was made using a #15 blade. The patient was then placed in Trendelenburg position. The peritoneal lining was then opened laterally towards the conjoined tendon and inguinal ligament using a Sonicision. We then proceeded medially until Morgan's ligament was reached. We then proceeded with inferior dissection encompassing the entire hernia sac using blunt dissection as well as the Sonicision. The cord and its surrounding contents identified and spared throughout the process. Good hemostasis was observed. A medium size 3DMax polypropylene mesh was then placed through the 10 mm port and tacked to Morgan's ligament medially with an absorbable tack into the inguinal ligament laterally. The peritoneal lining was then placed over the mesh and a few absorbable tacks placed to hold this in place with visualization of good hemostasis. The 10 mm port site fascia and peritoneum were then closed under direct visualization using a Kemar-Beltran device and 0 Vicryl suture. The abdomen was desufflated and remaining ports removed. All skin incisions were closed using 4-0 Monocryl running subcuticular sutures. Wounds were then cleaned and covered with Dermabond. The patient tolerated the procedure well. We will start IV and oral pain medication as well as a clear liquid diet. Once he is tolerating clears, has good pain control with oral pain medications, ambulating well, we will discharge him home where he will be instructed to do no heavy lifting or exertion, especially the first 2 weeks. Job ID: [id number] DocumentID: [id number] Dictated Date: 10/04/2022 12:33:53 Film Color Tester Date: 10/04/2022 18:12:00 Dictated By: ALESSANDRO GOSS MD
== END 2022-10-04 14:40 ==
LOC: SDC 09:52
PROVIDERS: ATTEND Surgery
DX: K40.90 Unilateral inguinal hernia, without obstruction or gangrene, not specified as recurrent (principal); F17.210 Nicotine dependence, cigarettes, uncomplicated
CPT/HCPCS: 49650; 87081; C1781

== ENCOUNTER → 2022-12-18 | Outpatient (CLI) | payer BC ==
[~2022-12-18] MED LIST changes: +HYDR-3817 PO
[2022-12-18 16:05] LABS: BILIRUBIN,URINE NEGATIVE (NEGATIVE); CLARITY,URINE SL CLOUDY; COLOR,URINE AMBER; GLUCOSE, URINE (UA) NEGATIVE (NEGATIVE); KETONES,URINE NEGATIVE (NEGATIVE); LEUKOCYTE ESTERASE ,URINE 1+ (NEGATIVE); NITRITE,URINE NEGATIVE (NEGATIVE); PH,URINE 6.5 (5-9); PROTEIN,URINE 2+ (NEGATIVE)
[2022-12-18 16:17] LABS: BACTERIA,URINE TRACE /HPF; RBC,URINE >100 /HPF
== END ==
LOC: LAB 15:56
PROVIDERS: ATTEND Nurse Practitioner Family
DX: R31.9 Hematuria, unspecified (principal)
CPT/HCPCS: 81000; 87088

== ENCOUNTER → 2022-12-27 | Outpatient (CLI) | payer BC ==
--- NOTE | 2022-12-27 14:10 | Diagnostic Imaging Report ---
PROCEDURE: US Scrotum. TECHNIQUE: Multiple real-time grayscale images were obtained over the scrotum in various projections bilaterally. INDICATION: Right testicular swelling Right testicle measures 4.3 x 3.3 x 4.3 cm. Left testicle measures 4.2 x 2.4 x 4.0 cm. There is normal echogenicity and blood flow in both testicles. Both epididymides are normal. There is no varicocele. There is a small right hydrocele. IMPRESSION: Small right hydrocele Dictated by: Dictated on workstation # [id number]
== END ==
LOC: RAD 11:44
PROVIDERS: ATTEND Surgery
DX: N43.3 Hydrocele, unspecified (principal)
CPT/HCPCS: 76870

== ENCOUNTER → 2023-01-01 | Outpatient (CLI) | payer BC ==
[~2023-01-01] MED LIST changes: +HOLD METFORMIN - RECEIVED CONTRAST 20 ML VIAL IV SCH; +IOHEXOL 350 MG/ML 100 ML (OMNIPAQUE 350) VIAL IV ONE; +NS 100 ML (IVPB) BAG IV ONE
--- NOTE | 2023-01-01 09:53 | Diagnostic Imaging Report ---
EXAMINATION: CT abdomen and pelvis with and without intravenous contrast. TECHNIQUE: Precontrast acquisitions were acquired through the abdomen and pelvis. Multiple contiguous axial images were obtained through the abdomen and pelvis after the administration of intravenous contrast. All CT scans use one or more of the following dose optimizing techniques: automated exposure control, MA and/or KvP adjustment based on patient size and exam type or iterative reconstruction. HISTORY: UROGRAM PROTOCOL, PERSISTENT HEMATURIA COMPARISON: 11/17/2019 FINDINGS: Lung bases: The lung bases are clear. Solid organs: The liver is normal without focal lesion. The gallbladder is normal. There is no biliary ductal dilation. Pancreas is normal. Spleen is normal. Adrenal glands are normal. There are bilateral nonobstructing renal calculi measuring up to 1.2 cm on the left. There are bilateral renal cysts. There is mild left hydronephrosis and hydroureter likely secondary to an obstructing stone in the left ureter measuring 0.7 cm. Bowel: The stomach and small bowel are normal without obstruction. The colon and appendix are normal. Peritoneum: There is no intraperitoneal free fluid or free air. No suspicious lymphadenopathy. Vasculature: Normal without aneurysm. Musculoskeletal: No suspicious osseous lesion or compression fracture. Pelvis: The prostate gland is normal. The urinary bladder is normal. IMPRESSION: 1. A 0.7 cm calculus within the mid left ureter resulting in left-sided hydronephrosis and hydroureter. 2. Additional bilateral nonobstructing renal calculi measuring up to 1.2 cm on the left. Dictated by: Dictated on workstation # [id number]
== END ==
LOC: RAD 08:21
PROVIDERS: ATTEND Surgery
DX: N13.2 Hydronephrosis with renal and ureteral calculous obstruction (principal); N02.9 Recurrent and persistent hematuria with unspecified morphologic changes
CPT/HCPCS: 74178

== ENCOUNTER → 2023-02-19 | Outpatient (CLI) | payer BC ==
[~2023-02-19] MED LIST changes: -HOLD METFORMIN - RECEIVED CONTRAST 20 ML VIAL IV SCH; -IOHEXOL 350 MG/ML 100 ML (OMNIPAQUE 350) VIAL IV ONE; -NS 100 ML (IVPB) BAG IV ONE
--- NOTE | 2023-02-19 17:00 | Diagnostic Imaging Report ---
HISTORY: Renal calcifications COMPARISON: CT from 01/01/2023 TECHNIQUE: Frontal view of the abdomen. FINDINGS: No distended loops of small bowel are seen. There is no large collection of free air. There are numerous calcifications in the kidneys bilaterally. The largest on the right measures up to 4 mm in size. The largest on the left measures up to 1.5 cm in size. No acute osseous abnormality is seen. IMPRESSION: 1. Nephrolithiasis. Dictated by: Dictated on workstation # [id number]
== END ==
LOC: RAD 11:23
PROVIDERS: ATTEND Urology
DX: N20.0 Calculus of kidney (principal)
CPT/HCPCS: 74018

== ENCOUNTER 2023-03-08 21:58 | Emergency (ER) | payer BC ==
[~2023-03-08] VITALS: Ht 183 cm; Wt 73.0 kg
--- NOTE | 2023-03-08 22:47 | ED Lower Extremity ---
General Chief Complaint: Lower Extremity Stated Complaint: LEFT FOOT INJURY Nursing Triage Note: tripped on driveway, twisted left foot. c/o pain/swelling to mid foot. Source: patient Exam Limitations: no limitations History of Present Illness Date Seen by Provider: Mar 08, 2023 Time Seen by Provider: 22:39 Initial Comments Patient is a 33-year-old male who presents to the emergency room with a chief complaint of mid foot pain and swelling on the left. He tripped and twisted his foot landing on it. Complains of point tenderness over the lateral aspect of the dorsum of the foot. No significant swelling is appreciated. Distal neurovascularly intact. Normal sensation to the toes. Denies any other complaints of injury. Did not hit his head. Onset: just prior to arrival Severity: severe Pain/Injury Location: left foot Method of Injury: fell Modifying Factors: Improves With Immobilization; Worse With Movement Allergies and Home Medications Allergies Coded Allergies: NKANo Known Allergies (Unverified Allergy, Mild, 10/03/22) Patient Home Medication List Home Medication List Reviewed: Yes Loratadine (Loratadine) 10 Mg Tablet, 10 MG PO DAILY, (Reported) Entered as Reported by: BENJAMIN CORDOVA on 11/17/19 1250 Discontinued Medications Hydrocodone/Acetaminophen (Hydrocodone-Acetamin 7.5-325) 7.5 Mg-325 Mg Tablet, 1 EACH PO Q4H PRN for PAIN-BREAKTHROUGH Discontinued Reason: No Longer Taking Prescribed by: MICHELLE CHUNG on 10/04/22 1018 Last Action: Discontinued Review of Systems Constitutional: see HPI Cardiovascular: no symptoms reported Gastrointestinal: no symptoms reported Genitourinary: no symptoms reported Musculoskeletal: joint pain (left foot) Skin: no symptoms reported Past Qyattap-Jwznzf-Caogxi Hx Patient Social History Tobacco Use?: Yes Substance use?: No Alcohol Use?: Yes Alcohol Frequency: Once in a while Pt feels they are or have been: No Immunizations Up To Date Tetanus Booster (TDap): Less than 5yrs PED Vaccines UTD: No First/Initial COVID19 Vaccinat: none Seasonal Allergies Seasonal Allergies: Yes Past Medical History Surgery/Hospitalization HX: cysto left ureteroscopy, lithotripsy x2, kidney stones, vertigo Surgeries: Yes (CYSTO WITH LEFT URETEROSCOPY; LITHOTRIPSY X 2; KIDNEY STONE REMOVAL) Respiratory: No Currently Using CPAP: No Currently Using BIPAP: No Cardiac: No Neurological: No Reproductive Disorders: No Sexually Transmitted Disease: No HIV/AIDS: No Genitourinary: Yes Kidney Stones Gastrointestinal: Yes (HERNIA) Musculoskeletal: No Endocrine: No HEENT: No Cancer: No Psychosocial: No Integumentary: No Blood Disorders: No Adverse Reaction/Blood Tranf: No Physical Exam Vital Signs Vital Signs - First Documented 03/08/23 22:07 Temp 36.0 Pulse 70 Resp 14 B/P (MAP) 130/80 (97) Pulse Ox 97 O2 Delivery Room Air Capillary Refill : Less Than 3 Seconds Height, Weight, BMI Height: 6'0" Weight: 170lbs. oz. 77.067154yi; 21.00 BMI Method:Stated General Appearance: WD/WN, no apparent distress Cardiovascular: regular rate, rhythm Respiratory: lungs clear, normal breath sounds, no respiratory distress, no accessory muscle use Gastrointestinal: soft Hips: bilateral hip non-tender, bilateral hip normal inspection, bilateral hip normal range of motion, bilateral hip no evidence of injury Legs: bilateral leg non-tender, bilateral leg normal inspection, bilateral leg normal range of motion, bilateral leg no evidence of injury Knees: bilateral knee non-tender, bilateral knee normal inspection, bilateral knee normal range of motion, bilateral knee no evidence of injury Ankles: bilateral ankle non-tender, bilateral ankle normal inspection, bilateral ankle normal range of motion, bilateral ankle no evidence of injury Feet: left foot pain, left foot soft tissue tenderness (dorsum of left foot (medial) mild erythema - no significant swelling) Progress/Results/Core Measures Results/Orders My Orders Orders - FERMIN MILLER MD Foot, Left, 2 View (03/08/23 22:43) Vital Signs/I&O 03/08/23 03/08/23 22:07 23:37 Temp 36.0 36.5 Pulse 70 65 Resp 14 16 B/P (MAP) 130/80 (97) 128/79 Pulse Ox 97 99 O2 Delivery Room Air Room Air Blood Pressure Mean: 97 Progress Progress Note : Progress Note Patient seen and evaluated by me. Eval today includes physical exam and xrays of the left foot. Pertinent physical exam findings include tenderness to the left lateral foot over the dorsum. No significant swelling. ddx - contusion vs foot fracture Patient xrays negative for acute fracture or dislocation. Recommendations for kennedy wrap, NSAID, ice and elevation. Return precautions provided. Diagnostic Imaging Diagonstic Imaging: Xray Comments foot xray independently reviewed and interpreted by me - no fracture or dislocation. Departure Impression Primary Impression: Sprain or strain of foot Disposition: HOME, SELF-CARE Condition: Stable Departure-Patient Inst. Decision time for Depature: 23:33 Referrals: TOREY BARNETT MD (PCP/Family) Primary Care Physician Patient Instructions: Foot Sprain ED Add. Discharge Instructions: Continue to ice your foot for 20 minutes at a time off-and-on over the next 24 hours. Elevate your foot overnight to reduce any swelling that may develop. Ovgt-ijt-siotfdl ibuprofen, 3 tablets which is 600 mg every 6 hours as needed for pain. Always take this medication with food. The radiologist will over read these x-rays in the morning and if he sees anything that I may have missed on the x-ray we will contact you tomorrow. Weightbearing as tolerated, keep an ice wrap on for stability Over the next 2 to 3 days. Copy Copies To 1: TOREY BARNETT MD, KATHRYN M MD Mar 08, 2023 22:47
[2023-03-08 23:37] VITALS: BP 128/79
--- NOTE | 2023-03-09 08:12 | Diagnostic Imaging Report ---
EXAMINATION: Left foot radiographs, 2 views. COMPARISON: None. HISTORY: 33-year-old male, left foot pain. Injury. FINDINGS: There is no identified acute fracture. There is no subluxation or dislocation. There is no radiopaque foreign body. The joint spaces are well preserved. IMPRESSION: 1. Unremarkable radiographs of the left foot. Dictated by: Dictated on workstation # [id number]
== END 2023-03-08 23:42 | disposition home or self-care (01) ==
LOC: EDUNIT# 21:58 → ER 22:01
DX: S93.602A Unspecified sprain of left foot, initial encounter (principal); Z28.310 Unvaccinated for COVID-19; W01.0XXA Fall on same level from slipping, tripping and stumbling without subsequent striking against object, initial encounter; X50.1XXA Overexertion from prolonged static or awkward postures, initial encounter
CPT/HCPCS: 73620